=== PATIENT | male | born 1960 | race African-American/Black ===

== ENCOUNTER 2021-03-28 08:41 | Outpatient (CLI) | payer OTHER ==
--- NOTE | 2021-03-28 19:06 | MRI Report ---
PROCEDURE: Hip RT W/O INDICATIONS: CERVICAL RADICULOPATHY TECHNIQUE: Noncontrast coronal T1 spin echo and STIR through the bony pelvis. Coronal and axial T2 fast spin ec ho with fat saturation, sagittal T1 spin echo, and oblique axial T2 fast spin echo with fat saturatio n through the hip. COMPARISON: None. Findings: MUSCULATURE: No edema in the musculature of the imaged hip region. LABRUM: Deficiency of the anterior superior labrum, compatible with chronic change/tear. HAMSTRING ATTACHMENT: No significant abnormality. BONES/JOINTS: T2 hyperintense/T1 hypointense signal is seen in the opposing articular surfaces of th e right hip with joint space loss and fibrocystic change, compatible advanced osteoarthrosis. No substantial joint effusion. PELVIC STRUCTURES: The lower pelvic intraperitoneal structures are unremarkable. Impression: 1.Advanced osteoarthrosis of the right hip. Reviewed by: Vic Williamson MD on 03/28/2021 7:05 PM PST Approved by: Vic Williamson MD on 03/28/2021 7:05 PM PST Station ID: [id number]
== END 2021-03-28 08:42 | disposition home or self-care (01) ==
LOC: DI 08:41
PROVIDERS: ATTEND Family Medicine
DX: M16.11 Unilateral primary osteoarthritis, right hip (principal)